=== PATIENT | male | born 1950 | race Caucasian/White ===

== ENCOUNTER 2021-11-17 17:52 | Emergency (ER) | payer MEDICARE ==
[2021-11-17 20:05] LABS: HEMOGLOBIN 11.3 gm/dl (14.0-17.5); RED BLOOD COUNT 4.21 M/UL (4.20-5.50)
[2021-11-17 20:35] LABS: BUN/CREATININE RATIO 58 (0-10)
== END 2021-11-18 02:30 | disposition home or self-care (01) ==
LOC: ER1 17:52
PROVIDERS: Student in an Organized Health Care Education/Training Program
DX: R04.0 Epistaxis (principal); R00.0 Tachycardia, unspecified; Z20.822 Contact with and (suspected) exposure to COVID-19; Z86.73 Personal history of transient ischemic attack (TIA), and cerebral infarction without residual deficits
CPT/HCPCS: 36600; 71045; 80048; 82550; 82553; 82803; 83605; 84484; 85025; 85379; 86850; 86900; 86901; 87040; 99284; U0002